=== PATIENT | male | born 1955 | race Hispanic/Latino ===

== ENCOUNTER → 2019-03-24 | Day surgery (SDC) | payer OTHER ==
[2019-03-20 16:11] LABS: BASOPHILS % 0.2 % (0.0-1.0); EOSINOPHILS # (AUTO) 0.3 (0.0-0.4); HEMATOCRIT 40.3 % (38.2-49.6); HEMOGLOBIN 13.6 g/dL (14.0-18.0); LYMPHOCYTES # (AUTO) 2.2 (1.0-3.2); LYMPHOCYTES % 35.2 % (18.0-39.1); MEAN CORPUSCULAR HEMOGLOBIN 31.4 pg (28-32); MEAN CORPUSCULAR HGB CONC 33.7 g/dL (31-35); MEAN CORPUSCULAR VOLUME 93.1 fL (81-99); MONOCYTES # (AUTO) 0.4 (0.2-0.8); MONOCYTES % 6.3 % (4.4-11.3); NEUTROPHILS # (AUTO) 3.4 (2.1-6.9); NEUTROPHILS % 54.1 % (38.7-80.0); PLATELET COUNT 131 x10e3/uL (140-360); RED BLOOD COUNT 4.33 x10e6/uL (4.3-5.7); RED CELL DISTRIBUTION WIDTH 12.3 % (11.7-14.4)
[2019-03-20 16:26] LABS: ALANINE AMINOTRANSFERASE 27 IU/L (0-55); ALBUMIN 4.2 g/dL (3.5-5.0); ALBUMIN/GLOBULIN RATIO 1.2 (0.8-2.0); ALKALINE PHOSPHATASE 76 IU/L (40-150); ANION GAP 11.9 mmol/L (8-16); BLOOD UREA NITROGEN 17 mg/dL (7-26); BUN/CREATININE RATIO 20 (6-25); CALCIUM 9.5 mg/dL (8.4-10.2); CARBON DIOXIDE 27 mmol/L (22-29); CHLORIDE 105 mmol/L (98-107); CREATININE, SERUM 0.83 mg/dL (0.72-1.25); EST GLOMERULAR FILTRATION RATE > 60 ML/MIN (60-); GLUCOSE 92 mg/dL (74-118); POTASSIUM 3.9 mmol/L (3.5-5.1); SODIUM 140 mmol/L (136-145)
[~2019-03-24] VITALS: Ht 188 cm; Wt 128.4 kg
[~2019-03-24] MED LIST: ALPRAZOLAM 0.5 MG TAB ONE; ATORVASTATIN CA10 MG PO; CIPRO500 MG PO; DIPHENHYDRAMINE HCL 25 MG CAP ONE; FENTANYL CITRATE/PF 100MCG/2 ML INJ ONE; FINASTERIDE PO; FLOMAX0.4 MG PO; HEPARIN SOD (PORCINE) 1000 UNIT/ML 30ML ONE; HEPARIN SOD/SOD CHLORIDE 2,000 ML ONE; IOPAMIDOL 370 MG/ML 200 ML INFUS..BTL INJ ONE; LIDOCAINE HCL 2% LOCAL 20 ML VIAL ONE; LOSARTAN POTASS25 MG PO; MIDAZOLAM HCL 2 MG/2 ML VIAL ONE; SODIUM CHLORIDE 0.9% 1000ML 1,000 ML ONE; VERAPAMIL HCL 2.5 MG/ML 2 ML VIAL ONE
[2019-03-24 12:08] VITALS: BP 118/72
--- NOTE | 2019-03-24 17:08 | NUR ---
1708 Bedside report received from Robert Nova.Identiferx2. Alert oriented and appropriate, PERRLA, respirations even and unlabored to room air. Pulses x4 extremeties equal and strong. Pedal pulses PT/DP X4 PP. Cap fill brisk < 3 sec. ok to dc TR band at 1745. No gross issue pain pallor pressure or dysrhythmia Skin warm and dry integrity appears D/I. IV 20g to left iv at 100cchr presents healthy w/o s/s of infiltration or complaint. Abdomen soft and supple. pt offered toileting, denies need to urinate or defecate. No personal affects with patient. Family Namrata Pt and family verbalizes understanding of POC. . Currently w/o complaint of pain or need.ds/rn -
[2019-03-24 17:15] VITALS: BP 127/77
[2019-03-24 17:30] VITALS: BP 127/88
--- NOTE | 2019-03-24 17:45 | NUR ---
1745RADIAL Compression removal: Initial Cuff volume 10 cc 1745 -2 cc Removed No hematoma/bleeding noted with normal neurovascular function. 1800 -3 cc Removed No hematoma/ bleeding noted with normal neurovascular function. 1815 -5cc all Removed No hematoma/bleeding noted with normal neurovascular function. Air removal completed. Stasis achieved sterile 2x2,Tegaderm, Coban dressing No hematoma, bleeding noted with normal neurovascular function. Wrist splint in place. Pt instructed on POC. Ds/Rn
[2019-03-24 18:00] VITALS: BP 122/77
--- NOTE | 2019-03-24 18:15 | NUR ---
1815t meets DC criteria. Rt arm assessed for s/s of complication and presence of hematoma. Skin warm, dry, no discolor, and pulses present. IV removed from left hand. Distal tip appears intact. VS WNL. Pt denies pain, sob, or need at this time. Family at daughter at bedside. Review of discharge paperwork and follow up instructions. verbalized understanding. Pt to wheelchair and transported to front of hospital. Transferred to private vehicle under own strength w/o incident with DC paperwork in hand. - ds/rn
--- OUTSIDE RECORDS SUMMARY | 2019-03-25 19:49 | XMS REPORT ---
Author Author [facility] Address Unknown Phone Unavailable Care Team Providers Care Online Communications Manager Name Role Phone JIA AYALA Unavailable Unavailable Problems This patient has no known problems. Allergies, Adverse Reactions, Alerts This patient has no known allergies or adverse reactions. Medications This patient has no known medications. Results Test Description Test Time Test Comments Text Results Atomic Results Result Comments CT ABDOMEN/PELVIS WO [place] [address] Patient Name: PRISCA MOURA MR #: [id number] : 1955 Age/Sex: 61/M Req #: [id number] Adm Physician: Ordered by: MAKAYLA KAUR [employer] Report #: [id number] Location: ER Room/Bed: Procedure: [id number] CT/CT ABDOMEN/PELVIS WO Exam Date: 03/14/17 Exam Time: 1436 REPORT STATUS: Signed PROCEDURE: CT ABDOMEN AND PELVIS WITHOUT CONTRAST TECHNIQUE: The abdomen and pelvis were scanned utilizing a multidetector helical scanner from the diaphragm to the lesser trochanter after the oral administration of water. No IV contrast was administered because of decreased GFR/elevated creatinine. Coronal and sagittal multiplanar reformations were obtained. COMPARISON: None. INDICATIONS: ABDOMINAL DISTENTION, unable to urinate FINDINGS: ABSENCE OF INTRAVENOUS CONTRAST DECREASES SENSITIVITY FOR DETECTION OF FOCAL LESIONS AND VASCULAR PATHOLOGY. LOWER THORAX: Multiple linear opacities seen in the right lower lobes, right and left, likely represent subsegmental atelectasis or scarring. Atherosclerotic calcification of the coronary arteries. HEPATOBILIARY: Diffuse hepatic steatosis. No focal hepatic lesions. No biliary ductal dilation. Gallbladder is unremarkable. SPLEEN: No splenomegaly. PANCREAS: No focal masses or ductal dilatation. ADRENALS: No adrenal nodules. KIDNEYS/URETERS: No renal or ureteral calculi. Mild right pelvocaliectasis/hydronephrosis. Mild left pelvocaliectasis, with moderate peripelvic and left periureteral stranding (for example, series 2, image 48). Suspected left urothelial thickening in the proximal ureter and pelvis. No abnormal renal contour. Mild left perinephric stranding. PELVIC ORGANS/BLADDER: The bladder is decompressed and there is a Beckford catheter in place. Moderate enlargement of the prostate. PERITONEUM / RETROPERITONEUM: No free air or fluid. LYMPH NODES: No lymphadenopathy. VESSELS: Mild atherosclerotic calcification of the distal abdominal aorta. GI TRACT: No bowel dilation or evidence of obstruction. Descending and sigmoid colon diverticulosis, without diverticulitis. Appendix is well identified, and normal in caliber. BONES AND SOFT TISSUES: No acute bony abnormalities. Degenerative changes in the lower thoracic and lumbosacral spine, predominan tly L3 through S1.. IMPRESSION: 1. mild bilateral pelvocaliectasis/hydronephrosis, likely the result of prior urinary retention. 2. There is moderate left peripelvic and left periureteral stranding, with questionable left urothelial thickening. No obstructing calculus is identified. This may reflect ascending infection/pyelonephritis, although evaluation is limited by lack of intravenous contrast. 3. Enlarged prostate, likely due to BPH. 4. Diffuse hepatic steatosis. No focal lesions. 5. Colonic diverticulosis, without diverticulitis. Graeme Toro M.D. Dictated by: Graeme Toro M.D. on 03/14/2017 at 15:23 Electronically approved by: Graeme Toro M.D. on 03/14/2017 at 15:23 Dictated By: GRAEME TORO MD 1523 Transcribed By: DIANE on 03/14/17 1523 COPY TO: MAKAYLA KAUR NP
--- NOTE | 2019-04-27 15:57 | Operative Report ---
DATE OF PROCEDURE: 03/24/2019 SURGEON: Tito Hill MD INDICATIONS: Coronary artery disease. PROCEDURES PERFORMED: Left heart catheterization, selective coronary angiography. COMPLICATIONS: None. RECOMMENDATIONS: Medical therapy. DESCRIPTION OF PROCEDURE: Access obtained in the right radial artery. A 5-Bulgarian sheath was placed. Coronary angiography demonstrated mild diffuse coronary artery disease, 20% to 30% luminal stenosis. No critical stenosis or occlusion noted. No intervention deemed necessary. Right wrist guide and sheath removed. TR band applied. The patient discharged home the same day. Tito Hill MD KSB/MODL /[id number]
== END | disposition home or self-care (01) ==
LOC: CATH LAB 16:00
PROVIDERS: ATTEND Internal Medicine Interventional Cardiology
DX: I25.118 Atherosclerotic heart disease of native coronary artery with other forms of angina pectoris (principal); I10 Essential (primary) hypertension; I70.0 Atherosclerosis of aorta; Z01.812 Encounter for preprocedural laboratory examination; Z68.43 Body mass index [BMI] 50.0-59.9, adult; Z82.49 Family history of ischemic heart disease and other diseases of the circulatory system
CPT/HCPCS: 36415; 80053; 85025; 93454; C1769; C1887; J1644; J2001; J2250; J3010; J7030; Q9967; 99152